=== PATIENT | male | born 1980 | race Caucasian/White ===

== ENCOUNTER 2018-07-18 09:38 | Emergency (ER) | payer OTHER ==
[~2018-07-18] VITALS: Ht 182.9 cm; Wt 135.0 kg
[2018-07-18 09:54] VITALS: BP 160/97
[2018-07-18] MEDS ORDERED: TETanus/Pertussis (Acell)/Diphther VAC/PF (Tdap-Adult) 0.5ml syringe IM ONE (10:20)
[2018-07-18] MEDS ORDERED: LIDOcaine 1% 30ml preserv. free vial IJ ONE (10:30)
[2018-07-18] MEDS ORDERED: CEPH-572 PO (11:18)
[2018-07-18] MEDS ORDERED: HYDR-3965 PO (11:18)
== END 2018-07-18 11:32 | disposition home or self-care (01) ==
LOC: ER 09:39
DX: S62.631A Displaced fracture of distal phalanx of left index finger, initial encounter for closed fracture (principal); S61.211A Laceration without foreign body of left index finger without damage to nail, initial encounter; I10 Essential (primary) hypertension; W45.8XXA Other foreign body or object entering through skin, initial encounter; Y93.89 Activity, other specified; Y92.89 Other specified places as the place of occurrence of the external cause; Y99.9 Unspecified external cause status
CPT/HCPCS: 12002; 29130; 73130; 90471; 90715; 99283; J3490